=== PATIENT | female | born 1975 | race Caucasian/White ===

== ENCOUNTER 2017-09-04 08:33 | Day surgery (SDC) | payer OTHER ==
[~2017-09-04 08:33] MED LIST: Lactated Ringers 1,000 ML IV SCH; Sodium Chloride 0.9% 10 ML Syringe FLUSH PRN; Sodium Chloride 0.9% 2.5 ML Syringe FLUSH PRN
[2017-09-04] MEDS ORDERED: Scopolamine 1.5 MG Transdermal Patch TRDERM PRN (09:24)
--- NOTE | 2017-09-04 09:24 | PCM.PREANE ---
Preanesthetic Assessment - Anesthesia/Transfusion/Family Hx Anesthesia History: Prior Anesthesia Reaction Type of Anesthesia Reaction: Excessive Nausea/Vomiting Family History of Anesthesia Reaction: No Transfusion History: No Prior Transfusion(s) Intubation History: Unknown - Review of Systems General: No Symptoms Pulmonary: No Symptoms Cardiovascular: No Symptoms Gastrointestinal: No Symptoms Neurological: No Symptoms Other: Reports: Easy Bleeding (abnormal uterine bleeding) - Physical Assessment Height: 1.57 m Weight: 98.43 kg ASA Class: 2 Mental Status: Alert & Oriented x3 Airway Class: Mallampati = 2 Dentition: Reports: Normal Dentition, Haivana Nakya(s) (botttom molars on both sides) Thyro-Mental Finger Breadths: 3 Mouth Opening Finger Breadths: 3 ROM/Head Extension: Full Lungs: Clear to Auscultation, Normal Respiratory Effort Cardiovascular: Regular Rate, Regular Rhythm - Allergies Allergies/Adverse Reactions: Allergies Allergy/AdvReac Type Severity Reaction Status Date / Time aspirin Allergy "I just Verified 08/31/17 08:42 done take it, I prefer tylenol" ibuprofen Allergy Stomach Verified 08/31/17 08:42 Upset - Blood Blood Available: No - Anesthesia Plan Pre-Op Medication Ordered: None - Acknowledgements Anesthesia Type Planned: General Anesthesia Pt an Appropriate Candidate for the Planned Anesthesia: Yes Alternatives and Risks of Anesthesia Discussed w Pt/Guardian: Yes Pt/Guardian Understands and Agrees with Anesthesia Plan: Yes PreAnesthesia Questionnaire HEENT History: Reports: Allergic Rhinitis Gastrointestinal History: Reports: GERD Endocrine/Metabolic History: Reports: Obesity/BMI 30+ - Past Surgical History Head Surgeries/Procedures: Reports: None GI Surgical History: Reports: Appendectomy - SUBSTANCE USE Smoking Status *Q: Never Smoker Recreational Drug Use History: No - HOME MEDS Home Medications: Home Meds Acetaminophen [Tylenol Extra Strength] 2 tab PO ASDIRECTED PRN 08/31/17 [History ] Calcium Carbonate [Tums] 1 tab.chew CHEW ASDIRECTED PRN 08/31/17 [History] Progenics Recovery 1 dose PO DAILY 08/31/17 [History] - CURRENT (IN HOUSE) MEDS Current Meds: Current Medications Lactated Ringer's (Ringers, Lactated) 1,000 mls @ 125 mls/hr IV ASDIRECTED BISI Last Admin: 09/04/17 09:16 Dose: 125 mls/hr Sodium Chloride (Saline Flush) 10 ml FLUSH ASDIRECTED PRN PRN Reason: Keep Vein Open Sodium Chloride (Saline Flush) 2.5 ml FLUSH ASDIRECTED PRN PRN Reason: Keep Vein Open
[2017-09-04] MEDS ORDERED: fentaNYL 100 MCG/2 ML SDV ONE (10:12)
[2017-09-04] MEDS ORDERED: Midazolam 1 MG/ML 2 ML SDV ONE (10:12)
[2017-09-04] MEDS ORDERED: Propofol 200 MG/20 ML SDV ONE (10:12)
[2017-09-04] MEDS ORDERED: Glycopyrrolate 0.2 MG/ML SDV ONE (10:13)
[2017-09-04] MEDS ORDERED: Ondansetron 4 MG/2 ML SDV ONE (10:13)
[2017-09-04] MEDS ORDERED: Lidocaine 2% 5 ML SDV ONE (10:13)
[2017-09-04] MEDS ORDERED: Ketorolac 30 MG/ML SDV ONE (10:13)
[2017-09-04] MEDS ORDERED: Acetaminophen/oxyCODONE 325-5 MG Tab PO PRN (11:43)
[2017-09-04] MEDS ORDERED: Lactated Ringers 1,000 ML IV SCH (11:45)
[2017-09-04] MEDS ORDERED: fentaNYL 100 MCG/2 ML SDV IVPUSH PRN (11:51)
--- NOTE | 2017-09-04 11:51 | PCM.OPNOTE ---
- General Post-Op/Procedure Note Date of Surgery/Procedure: 09/04/17 Operative Procedure(s): Hysteroscopy, polypectomy, dilatation and curettage Findings: Mobile uterus, 7 weeks, anteverted, sounded to 8cm. No adnexal masses. Anterior and posterior wall polyps. Both ostia visualized Pre Op Diagnosis: Abnormal uterine bleeding. Polyps Post-Op Diagnosis: Same Anesthesia Technique: General LMA Primary Surgeon: Ainsley Jefferson Pathology: ECC, endometrial curetting and polyps EBL in mLs: 10 Complications: None Condition: Good
--- NOTE | 2017-09-04 12:11 | PCM.POSTAN ---
POST ANESTHESIA ASSESSMENT - MENTAL STATUS Mental Status: Alert, Oriented - RESPIRATORY Respiratory Status: Respiratory Rate WNL, Airway Patent, O2 Saturation Stable - CARDIOVASCULAR CV Status: Pulse Rate WNL, Blood Pressure Stable - GASTROINTESTINAL GI Status: No Symptoms - PAIN Pain Score: 2 - POST OP HYDRATION Hydration Status: Adequate & Stable - OBSERVATIONS Free Text/Narrative:: no anesthesia problems
--- NOTE | 2017-09-04 13:14 | PCM48HPAN ---
Post Anesthesia Note - EVALUATION WITHIN 48HRS OF ANESTHETIC Vital Signs in Normal Range: Yes Patient Participated in Evaluation: Yes Respiratory Function Stable: Yes Airway Patent: Yes Cardiovascular Function Stable: Yes Hydration Status Stable: Yes Pain Control Satisfactory: Yes Nausea and Vomiting Control Satisfactory: Yes Mental Status Recovered: Yes Resp Rate: 13 - COMMENTS/OBSERVATIONS Free Text/Narrative:: no anesthesia problems
--- NOTE | 2017-09-05 00:08 | OR ---
SURGEON: Ainsley Jefferson MD DATE OF PROCEDURE: 09/04/2017 PREOPERATIVE DIAGNOSES: 1. Abnormal uterine bleeding. 2. Endometrial polyp. POSTOPERATIVE DIAGNOSES: 1. Abnormal uterine bleeding. 2. Endometrial polyp. PROCEDURE: Hysteroscopic polypectomy with dilatation and curettage. ANESTHESIA: General LMA. ESTIMATED BLOOD LOSS: Minimal. COMPLICATIONS: None. DISPOSITION: Stable to recovery room. PATHOLOGY: Endometrial polyps. Endometrial and endocervical curettings. FINDINGS: Mobile anteverted uterus sounded to 8 cm. No cervical lesions visualized and no adnexal masses palpable. Hysteroscopic findings revealed anterior and posterior wall polyps. Both fallopian tube ostia were visualized. INDICATIONS: The patient is a 41-year-old lady, who was evaluated in the office for abnormal uterine bleeding, saline enhanced sonohysterogram showed endometrial polyps and her office [place] endometrial biopsy was consistent with benign endometrial hyperplasia (simple hyperplasia without atypia). Thus, findings were reviewed with the patient and recommended to proceed with a hysteroscopic polypectomy and D and C. Thereafter, she would proceed with progestin for treatment of the hyperplasia if confirmed. The patient agreed to proceed. The risks of the procedure were discussed with the patient in detail including, but not limited to bleeding, infection, injury to the uterus in form of perforation and all the surrounding organs. An appropriate surgical consent was obtained. DESCRIPTION OF PROCEDURE: The patient was taken to the operating room, where she underwent induction of general anesthesia without difficulty. After adequate level of anesthesia, she was placed in the dorsal lithotomy position, prepped and draped in the usual sterile fashion for vaginal procedures. The bladder was emptied. A time-out was held. SCDs were in place. Examination under anesthesia revealed the aforementioned findings. A bivalve speculum was placed into the vagina and the anterior lip of the cervix was grasped with a single-tooth tenaculum. The uterine cavity was then sounded to a depth of 8 cm. An ECC was performed and a sample was collected with Cytobrush. The cervical os was then serially dilated up to a #7 Hegar dilator and a 6.5 MyoSure operative hysteroscope was inserted into the uterine cavity under direct visualization using normal saline as a distention media. Upon entering the uterine cavity, the aforementioned pathology was noted. The outflow channel of the MyoSure device was then removed. Under direct visualization, the MyoSure tissue retrieval device was inserted through this channel. The retrieval device was then aligned along the polyps and they were easily and completely resected. Survey of the uterine cavity post resection reveals no uterine wall injury. The MyoSure hysteroscopic device was then removed from the cavity. A gentle endometrial curetting was then performed with scanty amount of tissue obtained. Once this was completed, all the instruments were removed from the patient's vagina. The area on the cervix where the single-tooth tenaculum was placed, was found to be hemostatic. All sponge and instrument counts were correct. Input and output of the normal saline were recorded by the MyoSure fluid management system. The deficit was recorded as 675 mL. The patient was taken to the recovery room in a stable condition. JEREMY / ROMEO /[id number] MARTHA
== END 2017-09-04 13:08 | disposition home or self-care (01) ==
LOC: MW.SDS 08:33
PROVIDERS: ATTEND Obstetrics & Gynecology
DX: N84.0 Polyp of corpus uteri (principal); K21.9 Gastro-esophageal reflux disease without esophagitis; E66.9 Obesity, unspecified; Z68.39 Body mass index [BMI] 39.0-39.9, adult; Z79.899 Other long term (current) drug therapy; Z88.6 Allergy status to analgesic agent; Z88.8 Allergy status to other drugs, medicaments and biological substances
CPT/HCPCS: 00952; 36415; 84703; 85027; 86850; 86900; 86901; 88305; A9270-GY; J1885; J2250; J2405; J2704; J3010; J7120

== ENCOUNTER 2018-07-21 11:23 | Emergency (ER) | payer BC ==
[2018-07-21] MEDS ORDERED: Albuterol/Ipratropium 3.0-0.5 MG/3 ML Neb Soln NEB ONE (11:28)
[2018-07-21] MEDS ORDERED: methylPREDNISolone Sodium Succinate 125 MG/2 ML SDV IVPUSH ONE (11:29)
[2018-07-21] MEDS ORDERED: Albuterol/Ipratropium 3.0-0.5 MG/3 ML Neb Soln ONE (11:29)
--- NOTE | 2018-07-21 11:32 | EDM.PDOC ---
ED HPI GENERAL MEDICAL PROBLEM - General Chief Complaint: Respiratory Problem Stated Complaint: SPOKE TO NURSE Time Seen by Provider: 07/21/18 11:24 Source of Information: Reports: Patient History Limitations: Reports: No Limitations - History of Present Illness INITIAL COMMENTS - FREE TEXT/NARRATIVE: HISTORY AND PHYSICAL: History of present illness: Patient is a 42-year-old female who is brought to the emergency room with concerns of cough, fever and chest congestion. She states she was seen in the clinic last week for similar symptoms and was placed on Augmentin. Since that time she remains symptomatic and is concerned as her cough is becoming more frequent and productive. She has the sensation of "chest tightness" which feels similar to previous pneumonia. She has been using Tylenol and ibuprofen over-the -counter for fever management. Currently afebrile. She denies any previous lung or cardiac diseases/illness. She has been eating and drinking appropriately. Routine bowel movements, voiding per usual. She denies any chest pain, abdominal pain, nausea, vomiting, diarrhea, constipation or dysuria. Denies any chance of . Review of systems: As per history of present illness and below otherwise all systems reviewed and negative. Past medical history: As per history of present illness and as reviewed below otherwise noncontributory. Surgical history: As per history of present illness and as reviewed below otherwise noncontributory. Social history: See social history for further information Family history: As per history of present illness and as reviewed below otherwise noncontributory. Physical exam: General: Well-developed and well-nourished 42-year-old female. Alert and oriented. Nontoxic appearing and in no acute distress. HEENT: Atraumatic, normocephalic, pupils equal and reactive bilaterally, negative for conjunctival pallor or scleral icterus, mucous membranes moist, TMs normal bilaterally, throat clear, neck supple, nontender, trachea midline. No drooling or trismus noted. No meningeal signs. No hot potato voice noted. Lungs: Tight/poor air exchange with inspiration and fine expiratory wheezing throughout, breath sounds equal bilaterally, chest nontender. Heart: S1S2, regular rate and rhythm without overt murmur Abdomen: Soft, nondistended, nontender. Negative for masses or hepatosplenomegaly. Negative for costovertebral tenderness. Pelvis: Stable nontender. Genitourinary: Deferred. Rectal: Deferred. Skin: Intact, warm, dry. No lesions or rashes noted. Extremities: Atraumatic, negative for cords or calf pain. Neurovascular unremarkable. Neuro: Awake, alert, oriented. Cranial nerves II through XII unremarkable. Cerebellum unremarkable. Motor and sensory unremarkable throughout. Exam nonfocal. Notes: Patient states while work shows a elevation in her white blood count, early dehydration. Chest x-ray shows no acute findings although with the patient's symptomatology and presentation a minute treat her for an atypical pneumonia. One gram of Rocephin IV given here will prescribe azithromycin and Medrol Dosepak. Patient feels comfortable going home. Vital signs remain stable. Supportive care measures were reviewed and discussed. Voices understanding and is agreeable to plan of care. Denies any further questions or concerns at this time. Diagnostics: CBC, CMP, troponin, EKG, 2 view chest Therapeutics: DuoNeb, Solu-Medrol, Rocephin Prescription: Z-Toi, Medrol Dosepak Impression: Atypical pneumonia Plan: 1. Please take your medications as prescribed. 2. Continue using Tylenol and ibuprofen for pain management. 3. Please follow-up with your primary care provider as a discussed. Return to the ED as needed and as discussed. Definitive disposition and diagnosis as appropriate pending reevaluation and review of above. chest Pain Score (Numeric/FACES): 4 - Related Data Allergies Allergy/AdvReac Type Severity Reaction Status Date / Time aspirin Allergy "I just Verified 07/21/18 11:30 done take it, I prefer tylenol" ibuprofen Allergy Stomach Verified 07/21/18 11:30 Upset Home Meds: Home Meds Acetaminophen [Tylenol Extra Strength] 2 tab PO ASDIRECTED PRN 08/31/17 [History ] Calcium Carbonate [Tums] 1 tab.chew CHEW ASDIRECTED PRN 08/31/17 [History] Collagen, Hydrolysate (Bovine) [Collagen Hydrolysate] MC TID 07/21/18 [History] Past Medical History HEENT History: Reports: Allergic Rhinitis Gastrointestinal History: Reports: GERD Endocrine/Metabolic History: Reports: Obesity/BMI 30+ - Past Surgical History Head Surgeries/Procedures: Reports: None GI Surgical History: Reports: Appendectomy ED ROS GENERAL - Review of Systems Review Of Systems: ROS reveals no pertinent complaints other than HPI. ED EXAM, GENERAL - Physical Exam Exam: See Below (See dictation) Course - Vital Signs Last Recorded V/S: Last Vital Signs Temp 97.3 F 07/21/18 11:28 Pulse 92 07/21/18 13:11 Resp 18 07/21/18 13:11 BP 121/69 07/21/18 13:11 Pulse Ox 94 L 07/21/18 13:11 - Orders/Labs/Meds Orders: Active Orders 24 hr Category Date Time Status EKG Documentation Completion [RC] STAT Care 07/21/18 11:29 Active RT Aerosol Therapy [RC] ASDIRECTED Care 07/21/18 11:28 Active Labs: Laboratory Tests 07/21/18 07/21/18 Range/Units 11:35 11:35 WBC 11.97 H (4.0-11.0) K/uL RBC 4.94 (4.30-5.90) M/uL Hgb 13.0 (12.0-16.0) g/dL Hct 41.1 (36.0-46.0) % MCV 83.2 (80.0-98.0) fL MCH 26.3 L (27.0-32.0) pg MCHC 31.6 (31.0-37.0) g/dL RDW Std Deviation 47.4 (28.0-62.0) fl RDW Coeff of Georgina 16 H (11.0-15.0) % Plt Count 238 (150-400) K/uL MPV 9.80 (7.40-12.00) fL Neut % (Auto) 80.6 H (48.0-80.0) % Lymph % (Auto) 13.2 L (16.0-40.0) % [place] % (Auto) 5.9 (0.0-15.0) % Eos % (Auto) 0.0 (0.0-7.0) % Baso % (Auto) 0.3 (0.0-1.5) % Neut # (Auto) 9.7 H (1.4-5.7) K/uL Lymph # (Auto) 1.6 (0.6-2.4) K/uL [place] # (Auto) 0.7 (0.0-0.8) K/uL Eos # (Auto) 0.0 (0.0-0.7) K/uL Baso # (Auto) 0.0 (0.0-0.1) K/uL Nucleated RBC % 0.0 /100WBC Nucleated RBCs # 0 K/uL Sodium 135 L (136-145) mmol/L Potassium 3.7 (3.5-5.1) mmol/L Chloride 101 (98-107) mmol/L Carbon Dioxide 26.4 (21.0-32.0) mmol/L BUN 12 (7.0-18.0) mg/dL Creatinine 1.2 H (0.6-1.0) mg/dL Est Cr Clr Drug Dosing 52.74 mL/min Estimated GFR (MDRD) 49.3 ml/min Glucose 101 (74-106) mg/dL Calcium 8.6 (8.5-10.1) mg/dL Total Bilirubin 0.4 (0.2-1.0) mg/dL AST 14 L (15-37) IU/L ALT 25 (14-63) IU/L Alkaline Phosphatase 52 (46-116) U/L Troponin I < 0.050 (0.000-0.056) ng/mL Total Protein 7.9 (6.4-8.2) g/dL Albumin 3.2 L (3.4-5.0) g/dL Globulin 4.7 H (2.6-4.0) g/dL Albumin/Globulin Ratio 0.7 L (0.9-1.6) Meds: Medications Discontinued Medications Generic Name Dose Route Start Last Admin Trade Name Freq PRN Reason Stop Dose Admin Albuterol/Ipratropium 3 ml 07/21/18 11:28 07/21/18 11:40 Duoneb 3.0-0.5 Mg/3 Ml NEB 07/21/18 11:29 3 ml ONETIME ONE Administration Albuterol/Ipratropium Confirm 07/21/18 11:29 07/21/18 11:40 Duoneb 3.0-0.5 Mg/3 Ml Administered 07/21/18 11:30 Not Given Dose 3 ml .ROUTE .STK-MED ONE Ceftriaxone Sodium/Dextrose 1 50 mls @ 100 mls/hr 07/21/18 12:18 07/21/18 12: 30 gm/ Premix IV 07/21/18 12:47 100 mls/hr ONETIME ONE Administration Methylprednisolone Sodium Succinate 125 mg 07/21/18 11:29 07/21/18 11:40 Solu-Medrol IVPUSH 07/21/18 11:30 125 mg ONETIME ONE Administration Departure - Departure Time of Disposition: 12:38 Disposition: Home, Self-Care 01 Clinical Impression: Atypical pneumonia - Discharge Information Instructions: Community-Acquired Pneumonia, Adult, [id number] Referrals: PCP,Unknown [Primary Care Provider] - Forms: ED Department Discharge Additional Instructions: The following information is given to patients seen in the emergency department who are being discharged to home. This information is to outline your options for follow-up care. We provide all patients seen in our emergency department with a follow-up referral. The need for follow-up, as well as the timing and circumstances, are variable depending upon the specifics of your emergency department visit. If you don't have a primary care physician on staff, we will provide you with a referral. We always advise you to contact your personal physician following an emergency department visit to inform them of the circumstance of the visit and for follow-up with them and/or the need for any referrals to a consulting specialist. The emergency department will also refer you to a specialist when appropriate. This referral assures that you have the opportunity for follow-up care with a specialist. All of these measure are taken in an effort to provide you with optimal care, which includes your follow-up. Under all circumstances we always encourage you to contact your private physician who remains a resource for coordinating your care. When calling for follow-up care, please make the office aware that this follow-up is from your recent emergency room visit. If for any reason you are refused follow-up, please contact the [facility] Emergency Department at and asked to speak to the emergency department charge nurse. [facility] [address] [place] [id number] [facility] [address] [place] [id number] 1. Please take your medications as prescribed. 2. Continue using Tylenol and ibuprofen for pain management. 3. Please follow-up with your primary care provider as a discussed. Return to the ED as needed and as discussed. - My Orders Last 24 Hours: My Active Orders 07/21/18 11:28 RT Aerosol Therapy [RC] ASDIRECTED 07/21/18 11:29 EKG Documentation Completion [RC] STAT - Assessment/Plan Last 24 Hours: My Active Orders 07/21/18 11:28 RT Aerosol Therapy [RC] ASDIRECTED 07/21/18 11:29 EKG Documentation Completion [RC] STAT
[2018-07-21 12:10] LABS: CHLORIDE,CL 101 mmol/L (98-107); SODIUM,NA 135 mmol/L (136-145)
[2018-07-21] MEDS ORDERED: cefTRIAXone 1 GM in Premix Bag 1 BAG IV ONE (12:18)
--- NOTE | 2018-07-21 13:14 | CR ---
INDICATION: dyspnea INDICATION: Dyspnea. TECHNIQUE: Chest 2 views. COMPARISON: None FINDINGS: Cardiovascular and mediastinum: Heart size and vasculature are normal in caliber and appearance. Mediastinum is within normal limits. Lungs and pleural spaces: There is a faint airspace opacity in the left upper lobe, seen best on the PA view, which is suspicious for pneumonia. Right lung is clear. No sign of pleural effusion. No pneumothorax. Bones and soft tissues: No significant findings. IMPRESSION: 1. Airspace opacity in the left upper lobe, seen best on the PA view. 2. Pneumonia is suspected. Radiographic follow-up is advised to document resolution. Dictated by Sulaiman Brunson MD @ 07/21/2018 1:12:03 PM Dictated by: Sulaiman Brunson MD @ 07/21/2018 13:12:10 (Electronically Signed)
== END 2018-07-21 13:12 | disposition home or self-care (01) ==
LOC: MW.ED 11:23
DX: J18.9 Pneumonia, unspecified organism (principal); K21.9 Gastro-esophageal reflux disease without esophagitis; Z79.899 Other long term (current) drug therapy; Z90.49 Acquired absence of other specified parts of digestive tract
CPT/HCPCS: 36415; 71046; 80053; 84484; 85025; 93005; 94640; 96365; 96375; 99284; J0696; J2930; J7620-GY

== ENCOUNTER 2018-08-03 08:23 | Emergency (ER) | payer BC ==
--- NOTE | 2018-08-03 08:58 | EDM.PDOC ---
ED HPI GENERAL MEDICAL PROBLEM - General Chief Complaint: Respiratory Problem Stated Complaint: cough Time Seen by Provider: 08/03/18 08:58 Source of Information: Reports: Patient - History of Present Illness INITIAL COMMENTS - FREE TEXT/NARRATIVE: HISTORY AND PHYSICAL: History of present illness: [Patient has persistent cough over the last month she has been treated for bronchitis on amoxicillin 10 days, followed by Tila-Toi she has been diagnosed with pneumonia she was also bitten on a Medrol pack she does have some end expiratory wheeze and rhonchi on the right no fever nausea vomiting chills sweats or complains of persistent cough Currently has Pro Air inhaler ] Review of systems: As per history of present illness and below otherwise all systems reviewed and negative. Past medical history: As per history of present illness and as reviewed below otherwise noncontributory. Surgical history: As per history of present illness and as reviewed below otherwise noncontributory. Social history: No reported history of drug or alcohol abuse. Family history: As per history of present illness and as reviewed below otherwise noncontributory. Physical exam: HEENT: Atraumatic, normocephalic, pupils reactive, negative for conjunctival pallor or scleral icterus, mucous membranes moist, throat clear, neck supple, nontender, trachea midline. Lungs: Clear to auscultation, breath sounds equal bilaterally, chest nontender. post DuoNeb Heart: S1S2, regular, negative for clicks, rubs, or JVD. Abdomen: Soft, nondistended, nontender. Negative for masses or hepatosplenomegaly. Negative for costovertebral tenderness. Pelvis: Stable nontender. Genitourinary: Deferred. Rectal: Deferred. Extremities: Atraumatic, negative for cords or calf pain. Neurovascular unremarkable. Neuro: Awake, alert, oriented. Cranial nerves II through XII unremarkable. Cerebellum unremarkable. Motor and sensory unremarkable throughout. Exam nonfocal. Diagnostics: [Chest 1 view ] Therapeutics: [ Levaquin 500 mg by mouth daily #10 no refill prednisone 10 mg 4 tabs 3 days, 3 tabs 3 days 2 tabs 3 days 1 tab 3 days then stop Continue HFA ] Impression: [ bronchitis Slight infiltrate on chest x-ray ] Definitive disposition and diagnosis as appropriate pending reevaluation and review of above. general Pain Score (Numeric/FACES): 6 - Related Data Allergies Allergy/AdvReac Type Severity Reaction Status Date / Time aspirin Allergy "I just Verified 08/03/18 09:00 done take it, I prefer tylenol" ibuprofen Allergy Stomach Verified 08/03/18 09:00 Upset Home Meds: Home Meds Acetaminophen [Tylenol Extra Strength] 2 tab PO ASDIRECTED PRN 08/31/17 [History ] Calcium Carbonate [Tums] 1 tab.chew CHEW ASDIRECTED PRN 08/31/17 [History] Collagen, Hydrolysate (Bovine) [Collagen Hydrolysate] 1 dose MC TID 07/21/18 [ History] Past Medical History HEENT History: Reports: Allergic Rhinitis Gastrointestinal History: Reports: GERD Endocrine/Metabolic History: Reports: Obesity/BMI 30+ - Infectious Disease History Infectious Disease History: Reports: Chicken Pox - Past Surgical History Head Surgeries/Procedures: Reports: None GI Surgical History: Reports: Appendectomy Social & Family History - Family History Family Medical History: Noncontributory ED ROS GENERAL - Review of Systems Review Of Systems: See Below ED EXAM, GENERAL - Physical Exam Exam: See Below Course - Vital Signs Last Recorded V/S: Last Vital Signs Temp 97.7 F 08/03/18 08:58 Pulse 88 08/03/18 08:58 Resp 18 08/03/18 08:58 BP 117/73 08/03/18 08:58 Pulse Ox 93 L 08/03/18 08:58 - Orders/Labs/Meds Orders: Active Orders 24 hr Category Date Time Status RT Aerosol Therapy [RC] ASDIRECTED Care 08/03/18 09:14 Active Chest 1V Frontal [CR] Stat Exams 08/03/18 08:59 Taken Meds: Medications Discontinued Medications Generic Name Dose Route Start Last Admin Trade Name Freq PRN Reason Stop Dose Admin Albuterol/Ipratropium 3 ml 08/03/18 09:14 08/03/18 09:35 Duoneb 3.0-0.5 Mg/3 Ml NEB 08/03/18 09:15 3 ml ONETIME ONE Administration Departure - Departure Time of Disposition: 09:38 Disposition: Home, Self-Care 01 Condition: Good Clinical Impression: Bronchitis, Pulmonary infiltrate on chest x-ray - Discharge Information Referrals: PCP,None [Primary Care Provider] - Forms: ED Department Discharge Additional Instructions: The following information is given to patients seen in the emergency department who are being discharged to home. This information is to outline your options for follow-up care. We provide all patients seen in our emergency department with a follow-up referral. The need for follow-up, as well as the timing and circumstances, are variable depending upon the specifics of your emergency department visit. If you don't have a primary care physician on staff, we will provide you with a referral. We always advise you to contact your personal physician following an emergency department visit to inform them of the circumstance of the visit and for follow-up with them and/or the need for any referrals to a consulting specialist. The emergency department will also refer you to a specialist when appropriate. This referral assures that you have the opportunity for follow-up care with a specialist. All of these measure are taken in an effort to provide you with optimal care, which includes your follow-up. Under all circumstances we always encourage you to contact your private physician who remains a resource for coordinating your care. When calling for follow-up care, please make the office aware that this follow-up is from your recent emergency room visit. If for any reason you are refused follow-up, please contact the [facility] emergency department at and asked to speak to the emergency department charge nurse. - My Orders Last 24 Hours: My Active Orders 08/03/18 08:59 Chest 1V Frontal [CR] Stat 08/03/18 09:14 RT Aerosol Therapy [RC] ASDIRECTED - Assessment/Plan Last 24 Hours: My Active Orders 08/03/18 08:59 Chest 1V Frontal [CR] Stat 08/03/18 09:14 RT Aerosol Therapy [RC] ASDIRECTED
[2018-08-03] MEDS ORDERED: Albuterol/Ipratropium 3.0-0.5 MG/3 ML Neb Soln NEB ONE (09:14)
--- NOTE | 2018-08-03 09:46 | CR ---
INDICATION: Cough TECHNIQUE: Chest 1 views COMPARISON: 07/21/2018 FINDINGS: Cardiovascular and mediastinum: Heart size and vasculature are normal in caliber and appearance. Lungs and pleural spaces: Airspace infiltrate is present in the left lower lobe or lingula. Remainder of the lungs and pleural spaces are clear. Bones and soft tissues: No significant findings. IMPRESSION: Left lower lobe or lingular pneumonia. Dictated by Levi Perkins MD @ Aug 03 2018 9:44AM Signed by Dr. Levi Perkins @ Aug 03 2018 9:45AM
== END 2018-08-03 10:00 | disposition home or self-care (01) ==
LOC: MW.ED 08:23
DX: J40 Bronchitis, not specified as acute or chronic (principal); R91.8 Other nonspecific abnormal finding of lung field; Z88.6 Allergy status to analgesic agent
CPT/HCPCS: 71045; 71045-26; 94640; 99283-25; J7620-GY

== ENCOUNTER 2019-03-09 17:24 | Emergency (ER) | payer BC ==
--- NOTE | 2019-03-09 17:30 | EDM.PDOC ---
ED HPI GENERAL MEDICAL PROBLEM - General Chief Complaint: Lower Extremity Injury/Pain Stated Complaint: CONCERNED ABOUT POSS BLOOD CLOT Time Seen by Provider: 03/09/19 17:29 Source of Information: Reports: Patient History Limitations: Reports: No Limitations - History of Present Illness INITIAL COMMENTS - FREE TEXT/NARRATIVE: HISTORY AND PHYSICAL: History of present illness: Patient is a 43-year-old female presents to the ED with complaint of right calf pain. She states she went to kneel down and felt a pop on the right side of her right leg. she states since then she is having difficulty flexing her right foot. She reports pain in her calf. She also has developed some redness to the left lateral leg around a varicose vein. She denies chest pain or shortness of breath. Review of systems: As per history of present illness and below otherwise all systems reviewed and negative. Past medical history: As per history of present illness and as reviewed below otherwise noncontributory. Surgical history: As per history of present illness and as reviewed below otherwise noncontributory. Social history: No reported history of drug or alcohol abuse. Family history: As per history of present illness and as reviewed below otherwise noncontributory. Physical exam: General: Patient sitting comfortably in no acute distress and nontoxic appearing HEENT: Atraumatic, normocephalic, pupils reactive, negative for conjunctival pallor or scleral icterus, mucous membranes moist, throat clear, neck supple, nontender, trachea midline. No meningeal signs. Lungs: Clear to auscultation, breath sounds equal bilaterally, chest nontender. Heart: S1S2, regular, negative for clicks, rubs, or overt murmur. Abdomen: Soft, nondistended, nontender. Negative for masses or hepatosplenomegaly. Negative for costovertebral tenderness. No rigidity, rebound , guarding. Pelvis: Stable nontender. Genitourinary: Deferred. Rectal: Deferred. Extremities: There is a superficial varicose vein to the right medial lower leg with slight erythema. Pain with palpation of calf. Achilles tendon intact. Neurovascular unremarkable. Neuro: Awake, alert, oriented. Cranial nerves II through XII unremarkable. Cerebellum unremarkable. Motor and sensory unremarkable throughout. Exam nonfocal. Notes: Diagnostics: LE Venous doppler US Therapeutics: Xarelto 15mg PO Prescriptions: Xarelto Impression: DVT Plan: Take medication as instructed Follow up with primary care provider Return to ED as needed as discussed Definitive disposition and diagnosis as appropriate pending reevaluation and review of above. Right lower leg Pain Score (Numeric/FACES): 8 - Related Data Allergies Allergy/AdvReac Type Severity Reaction Status Date / Time aspirin Allergy "I just Verified 03/09/19 17:30 done take it, I prefer tylenol" ibuprofen Allergy Stomach Verified 03/09/19 17:30 Upset Home Meds: Home Meds Acetaminophen [Tylenol Extra Strength] 2 tab PO ASDIRECTED PRN 08/31/17 [History ] Calcium Carbonate [Tums] 1 tab.chew CHEW ASDIRECTED PRN 08/31/17 [History] Collagen, Hydrolysate (Bovine) [Collagen Hydrolysate] 1 dose MC TID 07/21/18 [ History] Levofloxacin 500 mg PO BID 03/09/19 [History] Rivaroxaban [Xarelto] 15 mg PO BID 21 Days #42 tablet 03/09/19 [Rx] Past Medical History HEENT History: Reports: Allergic Rhinitis Cardiovascular History: Reports: None Respiratory History: Reports: Pneumonia, Recurrent Gastrointestinal History: Reports: GERD Genitourinary History: Reports: None [employer] History: Reports: None Musculoskeletal History: Reports: None Neurological History: Reports: None Psychiatric History: Reports: None Endocrine/Metabolic History: Reports: Obesity/BMI 30+ Hematologic History: Reports: None Immunologic History: Reports: None Oncologic (Cancer) History: Reports: None Dermatologic History: Reports: None - Infectious Disease History Infectious Disease History: Reports: Chicken Pox - Past Surgical History Head Surgeries/Procedures: Reports: None GI Surgical History: Reports: Appendectomy Social & Family History - Family History Family Medical History: Noncontributory - Caffeine Use Caffeine Use: Reports: Coffee, Energy Drinks Review of Systems - Review of Systems Review Of Systems: ROS reveals no pertinent complaints other than HPI. ED EXAM, GENERAL - Physical Exam Exam: See Below (see dictation) Course - Vital Signs Last Recorded V/S: Last Vital Signs Temp 96.2 F 03/09/19 17:27 Pulse 98 03/09/19 17:27 Resp 18 03/09/19 17:27 BP 129/77 03/09/19 17:27 Pulse Ox 94 L 03/09/19 17:27 - Orders/Labs/Meds Orders: Active Orders 24 hr Category Date Time Status Rivaroxaban [Xarelto] Med 03/10/19 17:30 Ordered 15 mg PO WITHDINNER Medication Orders Rivaroxaban (Xarelto) 15 mg PO WITHDINNER [facility] Meds: Medications Generic Name Dose Route Start Last Admin Trade Name Urban PRN Reason Stop Dose Admin Rivaroxaban 15 mg 03/10/19 17:30 Xarelto PO WITHDINNER BISI Departure - Departure Time of Disposition: 18:54 Disposition: Home, Self-Care 01 Condition: Good Clinical Impression: Deep vein thrombophlebitis of right leg - Discharge Information Prescriptions: Rivaroxaban [Xarelto] 15 mg PO BID 21 Days #42 tablet Referrals: PCP,None [Primary Care Provider] - Forms: ED Department Discharge Additional Instructions: The following information is given to patients seen in the emergency department who are being discharged to home. This information is to outline your options for follow-up care. We provide all patients seen in our emergency department with a follow-up referral. The need for follow-up, as well as the timing and circumstances, are variable depending upon the specifics of your emergency department visit. If you don't have a primary care physician on staff, we will provide you with a referral. We always advise you to contact your personal physician following an emergency department visit to inform them of the circumstance of the visit and for follow-up with them and/or the need for any referrals to a consulting specialist. The emergency department will also refer you to a specialist when appropriate. This referral assures that you have the opportunity for follow-up care with a specialist. All of these measure are taken in an effort to provide you with optimal care, which includes your follow-up. Under all circumstances we always encourage you to contact your private physician who remains a resource for coordinating your care. When calling for follow-up care, please make the office aware that this follow-up is from your recent emergency room visit. If for any reason you are refused follow-up, please contact the [facility] Emergency Department at and asked to speak to the emergency department charge nurse. [facility] [address] [place] [id number] [facility] [address] [place] [id number] Take medication as instructed Follow up with primary care provider Return to ED as needed as discussed - My Orders Last 24 Hours: My Active Orders 03/10/19 17:30 Rivaroxaban [Xarelto] 15 mg PO WITHDINNER - Assessment/Plan Last 24 Hours: My Active Orders 03/10/19 17:30 Rivaroxaban [Xarelto] 15 mg PO WITHDINNER
--- NOTE | 2019-03-09 18:41 | US ---
INDICATION: Leg pain and swelling TECHNIQUE: Ultrasound venous duplex lower right extremity. Compression venous exam was performed using mayberry-scale, color Doppler, and spectral Doppler imaging. COMPARISON: None. FINDINGS: Thrombus present in the posterior tibial vein below the knee is somewhat echogenic. Acute thrombus is apparent in the gastrocnemius vein and in varicose veins in the area of pain. Remainder of the veins in the right lower extremity are fully compressible with normal waveforms. IMPRESSION: [id number] deep venous thrombus in the right posterior tibial vein is of indeterminate age. Acute appearing superficial thrombus in the gastrocnemius and varicose veins in the area of pain and redness. Dictated by Levi Perkins MD @ Mar 09 2019 6:35PM Signed by Dr. Levi Perkins @ Mar 09 2019 6:38PM
[2019-03-09] MEDS ORDERED: Rivaroxaban 15 MG Tab PO SCH (19:13)
[2019-03-10] MEDS ORDERED: Rivaroxaban 15 MG Tab PO SCH (17:30)
== END 2019-03-09 19:40 | disposition home or self-care (01) ==
LOC: MW.ED 17:24
DX: I82.461 Acute embolism and thrombosis of right calf muscular vein (principal); E66.9 Obesity, unspecified; Z88.6 Allergy status to analgesic agent; Z68.41 Body mass index [BMI] 40.0-44.9, adult
CPT/HCPCS: 93971; 99283; A9270

== ENCOUNTER 2021-09-19 07:41 | Day surgery (SDC) | payer BC ==
[~2021-09-19 07:41] MED LIST changes: +Midazolam 1 MG/ML 2 ML SDV ONE; +Propofol 200 MG/20 ML SDV ONE; -Sodium Chloride 0.9% 10 ML Syringe FLUSH PRN; -Sodium Chloride 0.9% 2.5 ML Syringe FLUSH PRN; +fentaNYL 100 MCG/2 ML SDV ONE
[2021-09-19] MEDS ORDERED: Ketamine 500 mg/10 ML MDV ONE (09:05)
[2021-09-19] MEDS ORDERED: Lactated Ringers 1,000 ML IV SCH (10:15)
== END 2021-09-19 11:42 | disposition home or self-care (01) ==
LOC: MW.SDS 07:41
PROVIDERS: ATTEND Surgery
DX: Z12.11 Encounter for screening for malignant neoplasm of colon (principal); K57.30 Diverticulosis of large intestine without perforation or abscess without bleeding; K31.7 Polyp of stomach and duodenum; K22.70 Barrett's esophagus without dysplasia; K29.50 Unspecified chronic gastritis without bleeding; K20.90 Esophagitis, unspecified without bleeding; E11.9 Type 2 diabetes mellitus without complications; E66.01 Morbid (severe) obesity due to excess calories; E73.9 Lactose intolerance, unspecified; F32.A Depression, unspecified; Z88.8 Allergy status to other drugs, medicaments and biological substances; Z79.899 Other long term (current) drug therapy; Z90.49 Acquired absence of other specified parts of digestive tract; Z98.890 Other specified postprocedural states; Z68.42 Body mass index [BMI] 45.0-49.9, adult
CPT/HCPCS: 43239; 45378; 81025; J2250; J2704; J3010; J3490; J7120; 00813